=== PATIENT | female | born 1960 | race Caucasian/White ===

== ENCOUNTER 2017-03-13 21:01 | Inpatient (IN) | payer BC ==
--- NOTE | 2017-03-13 22:14 | EDM.PDOC ---
ED HPI GENERAL MEDICAL PROBLEM - General Chief Complaint: Abdominal Pain Stated Complaint: POSS GALLBLADDER ATTACK Time Seen by Provider: 03/13/17 21:09 Source of Information: Reports: Patient History Limitations: Reports: No Limitations - History of Present Illness INITIAL COMMENTS - FREE TEXT/NARRATIVE: This is a 56-year-old female. She has been having 2 month history of upper abdominal pain and discomfort feeling full hard to digest foods and having increasing diarrhea. She's had a history of diarrhea for many years but she says is just getting worse. A couple years ago she had a gallbladder ultrasound but she doesn't remember why. [place] was [place] this weekend started having right mid back area pain that seemed to move around into the epigastric area was rather severe with nausea. It has eased up considerably on her way to the ER. She says she always has a fullness in her upper abdomen. Anything that she eats seems to flare up some of the symptoms. She thinks she has a gallbladder problem but she's never talked to her doctor about her recent 2 months of symptoms. No fever no chills Right Upper Abdomen Pain Score (Numeric/FACES): 3 - Related Data Allergies Allergy/AdvReac Type Severity Reaction Status Date / Time Sulfa (Sulfonamide Allergy Rash Verified 03/13/17 21:15 Antibiotics) Home Meds: Home Meds Dextromethorphan/guaiFENesin [Mucinex DM ER 600-30 MG] 1 tab PO BID PRN [History] Estradiol [Vivelle-Dot] 1 each TD ASDIRECTED 06/03/15 [History] Estrogens, Conjugated [Premarin Vaginal Crm] 0.5 gm VAG ASDIRECTED 06/03/15 [ History] Multivitamin with Minerals [Multiple Vitamin] 1 tab PO DAILY 06/03/15 [History] Pseudoephedrine [Sudafed 12 Hour] 1 tab PO Q12HR PRN 06/03/15 [History] SUMAtriptan Succinate [Imitrex] 1 tab PO ASDIRECTED 06/03/15 [History] Ibuprofen [Motrin] 600 mg PO Q6H PRN #30 tablet 06/05/15 [Rx] Guaifenesin/Pseudoephedrne HCl [Mucinex D ER 600-60 mg Tablet] 1 tab PO Q12H [History] Past Medical History Other HEENT History: Wears glasses Genitourinary History: Reports: UTI, Recurrent Other Genitourinary History: history of uti's. none at present. cysocele/ rectocele Other OB/BYN History: D&C Musculoskeletal History: Reports: Back Pain, Chronic Other Musculoskeletal History: Sciatic Neurological History: Reports: Migraines - Past Surgical History HEENT Surgical History: Reports: Tonsillectomy GI Surgical History: Reports: Appendectomy, Colonoscopy Female Surgical History: Reports: Hysterectomy, Other (See Below) Other Female Surgeries/Procedures: Cystoceole Social & Family History - Tobacco Use Smoking Status *Q: Never Smoker Second Hand Smoke Exposure: Yes - Alcohol Use Days Per Week of Alcohol Use: 0 Number of Drinks Per Day: 0 Total Drinks Per Week: 0 - Recreational Drug Use Recreational Drug Use: No ED ROS GENERAL - Review of Systems Review Of Systems: See Below Constitutional: Denies: Fever, Chills HEENT: Reports: No Symptoms Respiratory: Reports: No Symptoms Cardiovascular: Denies: Chest Pain Endocrine: Reports: No Symptoms GI/Abdominal: Reports: Abdominal Pain, Diarrhea. Denies: Nausea, Vomiting : Reports: No Symptoms Musculoskeletal: Reports: Back Pain Skin: Reports: No Symptoms Neurological: Reports: No Symptoms Psychiatric: Reports: No Symptoms Hematologic/Lymphatic: Reports: No Symptoms ED EXAM, GI/ABD - Physical Exam Exam: See Below Exam Limited By: No Limitations General Appearance: Alert, WD/WN, No Apparent Distress Eyes: Bilateral: Normal Appearance Ears: Normal External Exam Nose: Normal Inspection Throat/Mouth: Normal Inspection, Normal Lips, Normal Voice Head: Normocephalic Neck: Supple Respiratory/Chest: No Respiratory Distress, Lungs Clear, Normal Breath Sounds Cardiovascular: Regular Rate, Rhythm, No Murmur GI/Abdominal: Soft, Other (Very tender in the epigastric and right upper quadrant with positive Reid's, the left upper quadrant and lower abdomen is nontender on palpation, bowel sounds are positive but they are decreased) Back Exam: Other (She has a nikki on her right lower thoracic area where she was having the pain initially it is not tender on palpation there is no spinal tenderness noted, no other back findings) Extremities: Normal Inspection, Normal Range of Motion Neurological: Alert, Oriented Psychiatric: Normal Affect, Normal Mood Skin Exam: Warm, Dry Course - Vital Signs Last Recorded V/S: Last Vital Signs Temp 97.2 F 03/13/17 21:15 Pulse 79 03/13/17 21:15 Resp 18 03/13/17 21:15 BP 157/87 H 03/13/17 21:15 Pulse Ox 97 03/13/17 21:15 - Orders/Labs/Meds Orders: Active Orders 24 hr Category Date Time Status Abdomen Comp [US] Stat Exams 03/13/17 21:54 Taken Labs: Laboratory Tests 03/13/17 03/13/17 03/13/17 Range/Units 22:13 22:13 23:00 WBC 11.47 H (3.98-10.04) K/mm3 RBC 5.11 (3.98-5.22) M/mm3 Hgb 14.9 (11.2-15.7) gm/L Hct 43.0 (34.1-44.9) % MCV 84.1 (79.4-94.8) fl MCH 29.2 (25.6-32.2) pg MCHC 34.7 (32.2-35.5) g/dl RDW Std Deviation 37.7 (36.4-46.3) fL Plt Count 348 (182-369) K/mm3 MPV 8.6 L (9.4-12.3) fl Neut % (Auto) 76.2 H (34.0-71.1) % Lymph % (Auto) 16.7 L (19.3-51.7) % [place] % (Auto) 5.5 (4.7-12.5) % Eos % (Auto) 1.0 (0.7-5.8) Baso % (Auto) 0.3 (0.1-1.2) % Neut # (Auto) 8.73 H (1.56-6.13) K/mm3 Lymph # (Auto) 1.92 (1.18-3.74) K/mm3 [place] # (Auto) 0.63 H (0.24-0.36) K/mm3 Eos # (Auto) 0.12 (0.04-0.36) K/mm3 Baso # (Auto) 0.04 (0.01-0.08) K/mm3 Sodium 138 (136-145) mEq/L Potassium 4.0 (3.5-5.1) mEq/L Chloride 102 (98-107) mEq/L Carbon Dioxide 25 (21-32) mEq/L Anion Gap 15.0 (5-15) BUN 12 (7-18) mg/dL Creatinine 0.9 (0.55-1.02) mg/dL Est Cr Clr Drug Dosing 57.74 mL/min Estimated GFR (MDRD) > 60 (>60) mL/min BUN/Creatinine Ratio 13.3 L (14-18) Glucose 104 (74-106) mg/dL Calcium 9.1 (8.5-10.1) mg/dL Total Bilirubin 1.5 H (0.2-1.0) mg/dL AST 405 H (15-37) U/L ALT 308 H (14-59) U/L Alkaline Phosphatase 162 H (46-116) U/L Total Protein 7.3 (6.4-8.2) g/dl Albumin 3.4 (3.4-5.0) g/dl Globulin 3.9 gm/dL Albumin/Globulin Ratio 0.9 L (1-2) Lipase 154 (73-393) U/L Urine Color Yellow (Yellow) Urine Appearance Clear (Clear) Urine pH 6.5 (5.0-8.0) Ur Specific [place] 1.015 (1.005-1.030) Urine Protein Negative (Negative) Urine Glucose (UA) Negative (Negative) Urine Ketones Negative (Negative) Urine Occult Blood Trace-lysed H (Negative) Urine Nitrite Negative (Negative) Urine Bilirubin Negative (Negative) Urine Urobilinogen 0.2 (0.2-1.0) Ur Leukocyte Esterase Negative (Negative) Urine RBC 0-5 (0-5) /hpf Urine WBC 0-5 (0-5) /hpf Ur Epithelial Cells 0-5 (0-5) /hpf Urine Bacteria Few (FEW) /hpf Urine Mucus Not seen (FEW) /hpf - Radiology Interpretation Free Text/Narrative:: Ultrasound shows cholelithiasis without signs of cholecystitis, mildly enlarged liver what might be a hemangioma in the right lobe and some mild suggestion of fatty infiltration. - Re-Assessments/Exams Free Text/Narrative Re-Assessment/Exam: 03/14/17 00:00 I spoke to the patient and her regarding the test results laboratory results and ultrasound. Departure - Departure Time of Disposition: 00:01 Disposition: Admitted As Inpatient 66 Condition: Fair Clinical Impression: Elevated liver enzymes, Abdominal pain, acute, right upper quadrant Cholelithiasis Qualifiers: Cholelithiasis location: gallbladder Cholecystitis presence: without cholecystitis Biliary obstruction: with biliary obstruction Qualified Code(s): K80.21 - Calculus of gallbladder without cholecystitis with obstruction - Discharge Information Additional Instructions: I spoke to Dr. Emerson she will admit the patient for further evaluation and treatment ED Communication - ED Communication Date/Time Date: 03/14/17 Time Called: 00:02 - Discussed Case With (1) Discussed Case With (1): Admitting Provider Person/s Notified (1): Evelyn Emerson (She will admit the patient) - My Orders Last 24 Hours: My Active Orders 03/13/17 21:54 Abdomen Comp [US] Stat - Assessment/Plan Last 24 Hours: My Active Orders 03/13/17 21:54 Abdomen Comp [US] Stat
[2017-03-14] MEDS ORDERED: Lactated Ringers 1,000 ML IV SCH (00:15)
[2017-03-14] MEDS ORDERED: Ondansetron 4 MG/2 ML SDV IVPUSH PRN (01:38)
[2017-03-14] MEDS ORDERED: Sodium Chloride 0.9% 50 ML SDV ONE (11:00)
[2017-03-14] MEDS ORDERED: Iopamidol 612 MG/ML 50 ML SDV ONE (11:00)
[2017-03-14] MEDS ORDERED: Bupivacaine 0.5%/EPINEPHrine 1:200,000 50 ML MDV ONE (11:00)
[2017-03-14] MEDS ORDERED: Lidocaine 1% with EPINEPHrine 1:100,000 20 ML MDV ONE (11:00)
[2017-03-14] MEDS ORDERED: Propofol 200 MG/20 ML SDV ONE (11:15)
[2017-03-14] MEDS ORDERED: Ondansetron 4 MG/2 ML SDV ONE (11:15)
[2017-03-14] MEDS ORDERED: Lidocaine 1% 4 ML ONE (11:16)
[2017-03-14] MEDS ORDERED: fentaNYL 250 MCG/5 ML SDV ONE (11:16)
[2017-03-14] MEDS ORDERED: Midazolam 1 MG/ML 2 ML SDV ONE (11:16)
--- NOTE | 2017-03-14 11:26 | PCM.CONS ---
H&P History of Present Illness - General Date of Service: 03/14/17 Source of Information: Patient, Old Records, Provider History Limitations: Reports: No Limitations - History of Present Illness Initial Comments - Free Text/Narative: The patient is a 56-year-old woman presented to the emergency department late yesterday evening with complaints of abdominal pain. She states that she has been feeling unwell for "months and months." She states she has felt generally unwell, achy and tired. She has had pain in her lower and upper back. She states that she has had postprandial diarrhea for many years, but this seems worse lately. She has even had episodes of fecal incontinence. About 1 week ago she had some pelvic cramping and thought she had a bladder infection. She was started on Keflex by Dr. Oh and took her last dose on . She denies a history of C. diff. She was at the [place] with her family yesterday and developed nausea and vomiting last night. She went to bed feeling unwell and woke up feeling unwell. She felt like a vice was pushing out of her abdomen. She had heartburn and took Tums and Zantac without relief. She had excessive burping but no relief in her symptoms. She had right shoulder pain. She had dry heaves and epigastric pain. She had some fevers and chills about 2 weeks ago, and some sweating last night. She states she has been previously told she had irritable bowel disease. She did have a colonoscopy in August with Dr. Meza that showed some polyps that were reportedly benign. She thinks she may have been told that her gallbladder was unremarkable on a previous ultrasound in [place]. She did have an ultrasound in the emergency department which demonstrated small gallstones, there was no pericholecystic fluid or gallbladder wall thickening or biliary ductal dilatation. She did have an elevated total bilirubin as well as elevated AST and ALT, and alkaline phosphatase. She also noted that for the last couple of months she has had intermittent black stools. She does have a family history of bleeding ulcers. She is concerned she may have an ulcer. She states that she takes "way too much " ibuprofen, 3 in the morning and 2 to 3 in the evening to help with her sciatica pain. She does not drink alcohol. She does not smoke or use tobacco. She does drink some coffee and caffeinated beverages. She has had intermittent episodes of feeling lightheaded and dizzy. She denies any chest pain or shortness of breath with exertion. She did have a history of a stress test in [place] about a year and a half ago which was reportedly unremarkable. She has been NPO overnight and states she feels a little better this AM. Right Upper Abdomen Pain Score (Numeric/FACES): 2 - Related Data Allergies/Adverse Reactions: Allergies Allergy/AdvReac Type Severity Reaction Status Date / Time Sulfa (Sulfonamide Allergy Rash Verified 03/13/17 21:15 Antibiotics) Home Medications: Home Meds Estradiol [Vivelle-Dot] 1 each TD ASDIRECTED 06/03/15 [History] Multivitamin with Minerals [Multiple Vitamin] 1 tab PO DAILY 06/03/15 [History] SUMAtriptan Succinate [Imitrex] 1 tab PO ASDIRECTED 06/03/15 [History] Ibuprofen [Motrin] 600 mg PO Q6H PRN #30 tablet 06/05/15 [Rx] Past Medical History Other HEENT History: Wears glasses Other Cardiovascular History: Abnormality noted on EKG - ? old inferior infarct , reports normal stress test in [place] 1.5 years ago Gastrointestinal History: Reports: Cholelithiasis, Chronic Diarrhea, Colon Polyp , Fecal Incontinence, Irritable Bowel Syndrome Genitourinary History: Reports: UTI, Recurrent Other Genitourinary History: history of uti's. none at present. cystocele/ rectocele repair w/ Dr. Oh Other OB/BYN History: D&C Musculoskeletal History: Reports: Back Pain, Chronic Other Musculoskeletal History: Sciatica Neurological History: Reports: Migraines Endocrine/Metabolic History: Reports: Obesity/BMI 30+ - Infectious Disease History Infectious Disease History: Denies: C-Difficile - Past Surgical History HEENT Surgical History: Reports: Tonsillectomy, Other (See Below) ([place] teeth extraction) GI Surgical History: Reports: Appendectomy (open), Colonoscopy Female Surgical History: Reports: Hysterectomy (vaginal), Other (See Below) Other Female Surgeries/Procedures: Cystocele/ Rectocele repair Social & Family History - Family History Family Medical History: Noncontributory Other Family History: [place] - pneumonia, thyroid issues (not cancer) FA - bladder cancer 5 siblings, 1 BRO due to MVC, 1 BRO due to MA at 62 with no risk factors - Tobacco Use Smoking Status *Q: Never Smoker Second Hand Smoke Exposure: No - Caffeine Use Caffeine Use: Reports: Coffee, Soda Other Caffeine Use: 1 caffinated drink a day - Alcohol Use Alcohol Use History: No Days Per Week of Alcohol Use: 0 Number of Drinks Per Day: 0 Total Drinks Per Week: 0 - Recreational Drug Use Recreational Drug Use: No - Living Situation & Occupation Living situation: Reports: Occupation: Employed 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 H&P Review of Systems - Review of Systems: Review Of Systems: See Below General: Reports: Fever, Chills, Malaise, Fatigue, Other (general feeling of unwell for months ) HEENT: Reports: Glasses, Headaches Pulmonary: Reports: No Symptoms Cardiovascular: Reports: Lightheadedness Gastrointestinal: Reports: Abdominal Pain, Black Stool, Diarrhea, Nausea, Vomiting Genitourinary: Reports: Pain (Intermittent pelvic pain), Other (Frequent UTI ) Musculoskeletal: Reports: Shoulder Pain (Right ) Skin: Reports: No Symptoms Psychiatric: Reports: No Symptoms Neurological: Reports: Dizziness Hematologic/Lymphatic: Reports: No Symptoms Immunologic: Reports: No Symptoms Exam - Exam Exam: See Below - Vital Signs Vital Signs: Last Vital Signs Temp 97.9 F 03/14/17 08:46 Pulse 68 03/14/17 08:46 Resp 16 03/14/17 08:46 BP 118/65 03/14/17 08:46 Pulse Ox 92 L 03/14/17 08:46 Weight: 200 lb - Exam Quality Assessment: No: Supplemental Oxygen General: Alert, Oriented, Cooperative HEENT: Conjunctiva Clear, Glasses. No: Scleral Icterus Neck: Supple, Trachea Midline Lungs: Clear to Auscultation, Normal Respiratory Effort Cardiovascular: Regular Rate, Regular Rhythm Abdomen: Soft, Guarding (voluntary pelvis and upper abdomen ), Tenderness ( pelvis and epigastrium/ RUQ ). No: Distention, Rigidity, Rebound, Mass, Aortic Pulsation Rectal (Female) Exam: Deferred Extremities: No: Clubbing, Cyanosis, Edema Skin: Warm, Dry, Intact Neurological: Cranial Nerves Intact, Normal Speech. No: Focal Deficit Neuro Extensive - Mental Status: Alert, Oriented x3, Normal Mood/Affect, Normal Cognition, Memory Intact Psychiatric: Alert, Normal Affect, Normal Mood - Patient Data Lab Results Last 24 hrs: Laboratory Results - last 24 hr 03/14/17 03/14/17 Range/Units 10:15 10:15 WBC 8.59 (3.98-10.04) K/mm3 RBC 4.84 (3.98-5.22) M/mm3 Hgb 14.2 (11.2-15.7) gm/L Hct 41.1 (34.1-44.9) % MCV 84.9 (79.4-94.8) fl MCH 29.3 (25.6-32.2) pg MCHC 34.5 (32.2-35.5) g/dl RDW Std Deviation 38.3 (36.4-46.3) fL Plt Count 334 (182-369) K/mm3 MPV 8.8 L (9.4-12.3) fl Sodium 138 (136-145) mEq/L Potassium 3.8 (3.5-5.1) mEq/L Chloride 103 (98-107) mEq/L Carbon Dioxide 26 (21-32) mEq/L Anion Gap 12.8 (5-15) BUN 10 (7-18) mg/dL Creatinine 0.8 (0.55-1.02) mg/dL Est Cr Clr Drug Dosing 64.95 mL/min Estimated GFR (MDRD) > 60 (>60) mL/min BUN/Creatinine Ratio 12.5 L (14-18) Glucose 98 (74-106) mg/dL Calcium 8.6 (8.5-10.1) mg/dL Total Bilirubin 1.2 H (0.2-1.0) mg/dL Direct Bilirubin 0.20 (0.0-0.2) mg/dl Indirect Bilirubin 1.00 AST 171 H (15-37) U/L ALT 256 H (14-59) U/L Alkaline Phosphatase 153 H (46-116) U/L Total Protein 6.7 (6.4-8.2) g/dl Albumin 3.2 L (3.4-5.0) g/dl Globulin 3.5 gm/dL Albumin/Globulin Ratio 0.9 L (1-2) Result Diagrams: 03/14/17 10:15 03/14/17 10:15 Imaging Impressions Last 24 hrs: I personally reviewed her Abdominal US - gallstones present, no significant intra or extrahepatic ductal dilation, no pericholecystic fluid, no gallbladder wall thickening. Consult PN Assessment/Plan Procedures: Procedures COLONOSCOPY AND BIOPSY (09/04/16) COMP SCREEN MAMMOGRAM ADD-ON (08/19/16) COMPLETE CBC W/AUTO DIFF WBC (06/04/15) COMPREHEN METABOLIC PANEL (06/04/15) ELECTROCARDIOGRAM TRACING (06/04/15) REPAIR BLADDER DEFECT (06/04/15) REPAIR OF PERINEUM (06/04/15) REPAIR OF VAGINA (06/04/15) ROUTINE VENIPUNCTURE (06/04/15) TISSUE EXAM BY PATHOLOGIST (09/04/16) TRANSVAGINAL US NON-OB (12/12/15) URINALYSIS AUTO W/SCOPE (09/10/16) (1) Cholelithiasis SNOMED Code(s): 476059997 Code(s): K80.20 - CALCULUS OF GALLBLADDER W/O CHOLECYSTITIS W/O OBSTRUCTION Current Visit: Yes Qualifiers: Cholelithiasis location: gallbladder Cholecystitis presence: without cholecystitis Biliary obstruction: with biliary obstruction Qualified Code(s ): K80.21 - Calculus of gallbladder without cholecystitis with obstruction (2) Abdominal pain, acute, right upper quadrant SNOMED Code(s): 431279579 Code(s): R10.11 - RIGHT UPPER QUADRANT PAIN Current Visit: Yes (3) History of melena SNOMED Code(s): 449708294 Code(s): Z87.19 - PERSONAL HISTORY OF OTHER DISEASES OF THE DIGESTIVE SYSTEM Current Visit: Yes (4) NSAID long-term use SNOMED Code(s): 508730994, 542639561 Code(s): Z79.1 - NONPROFIT MANAGER (CURRENT) USE OF NON-STEROIDAL NON-INFLAM (NSAID) Current Visit: Yes (5) Dizziness SNOMED Code(s): 087006776, 967571422 Code(s): R42 - DIZZINESS AND GIDDINESS Current Visit: Yes (6) Elevated liver enzymes SNOMED Code(s): 348743715, 159575074 Code(s): R74.8 - ABNORMAL LEVELS OF OTHER SERUM ENZYMES Current Visit: Yes Problem List Initiated/Reviewed/Updated: Yes My Orders last 24 hours: My Active Orders 03/14/17 00:15 Lactated Ringers [Ringers, Lactated] 1,000 ml IV ASDIRECTED 03/14/17 01:38 Ondansetron [Zofran] 4 mg IVPUSH Q6H PRN 03/14/17 01:40 HYDROmorphone [Dilaudid] 0.5 mg IVPUSH Q4H PRN 03/14/17 01:41 Activity as Tolerated [RC] .Routine Code Status [Resuscitation Status] Routine 03/14/17 11:04 Cholangiogram In OR [CR] Routine 03/14/17 Breakfast NPO Now [Nothing per Oral Now Diet] [DIET] Plan: 56 yo woman with cholelithiases and elevated total bilirubin and transaminases, ? acute cholecystitis as also mild leukocytosis, abdominal pain, nausea and vomiting, melena and diarrhea with chronic NSAID use We discussed laparoscopic cholecystectomy with intraoperative cholangiogram and diagnostic EGD for treatment of above symptoms and associated symptoms. We discussed risks of the procedure including pain, bleeding, need for additional procedures, damage to surrounding structures including the biliary system and common bile duct, liver, small bowel, stomach and colon. We discussed the risk of postoperative change in bowel habits which can be permanent. We reviewed the post-operative lifting restrictions of no more than 20 lbs for 4 weeks. The patient's questions were answered. Preoperative EKG was ordered.
--- NOTE | 2017-03-14 11:26 | PCM.PREANE ---
Preanesthetic Assessment - Anesthesia/Transfusion/Family Hx Anesthesia History: Prior Anesthesia Without Reaction Family History of Anesthesia Reaction: No Transfusion History: No Prior Transfusion(s) - Review of Systems General: Fatigue Pulmonary: No Symptoms Cardiovascular: Dyspnea on Exertion Gastrointestinal: No symptoms Neurological: No Symptoms Other: Reports: None - Physical Assessment NPO Status Date: 03/13/17 NPO Status Time: 00:00 Pulse: 68 O2 Sat by Pulse Oximetry: 92 Respiratory Rate: 16 Blood Pressure: 118/65 Temperature: 36.6 C Vital Signs: Last Vital Signs Temp 36.6 C 03/14/17 08:46 Pulse 68 03/14/17 08:46 Resp 16 03/14/17 08:46 BP 118/65 03/14/17 08:46 Pulse Ox 92 L 03/14/17 08:46 Height: 1.6 m Weight: 90.718 kg ASA Class: 2E Mental Status: Alert & Oriented x3 Airway Class: Mallampati = 1 Dentition: Reports: Normal Dentition Thyro-Mental Finger Breadths: 3 Mouth Opening Finger Breadths: 3 ROM/Head Extension: Full Lungs: Clear to auscultation, Normal respiratory effort Cardiovascular: Regular Rate, Regular Rhythm, No Murmurs - Lab Values: Laboratory Last Values WBC 8.59 K/mm3 (3.98-10.04) 03/14/17 10:15 RBC 4.84 M/mm3 (3.98-5.22) 03/14/17 10:15 Hgb 14.2 gm/L (11.2-15.7) 03/14/17 10:15 Hct 41.1 % (34.1-44.9) 03/14/17 10:15 MCV 84.9 fl (79.4-94.8) 03/14/17 10:15 MCH 29.3 pg (25.6-32.2) 03/14/17 10:15 MCHC 34.5 g/dl (32.2-35.5) 03/14/17 10:15 RDW Std Deviation 38.3 fL (36.4-46.3) 03/14/17 10:15 Plt Count 334 K/mm3 (182-369) 03/14/17 10:15 MPV 8.8 fl (9.4-12.3) L 03/14/17 10:15 Neut % (Auto) 76.2 % (34.0-71.1) H 03/13/17 22:13 Lymph % (Auto) 16.7 % (19.3-51.7) L 03/13/17 22:13 [place] % (Auto) 5.5 % (4.7-12.5) 03/13/17 22:13 Eos % (Auto) 1.0 (0.7-5.8) 03/13/17 22:13 Baso % (Auto) 0.3 % (0.1-1.2) 03/13/17 22:13 Neut # (Auto) 8.73 K/mm3 (1.56-6.13) H 03/13/17 22:13 Lymph # (Auto) 1.92 K/mm3 (1.18-3.74) 03/13/17 22:13 [place] # (Auto) 0.63 K/mm3 (0.24-0.36) H 03/13/17 22:13 Eos # (Auto) 0.12 K/mm3 (0.04-0.36) 03/13/17 22:13 Baso # (Auto) 0.04 K/mm3 (0.01-0.08) 03/13/17 22:13 Sodium 138 mEq/L (136-145) 03/14/17 10:15 Potassium 3.8 mEq/L (3.5-5.1) 03/14/17 10:15 Chloride 103 mEq/L (98-107) 03/14/17 10:15 Carbon Dioxide 26 mEq/L (21-32) 03/14/17 10:15 Anion Gap 12.8 (5-15) 03/14/17 10:15 BUN 10 mg/dL (7-18) 03/14/17 10:15 Creatinine 0.8 mg/dL (0.55-1.02) 03/14/17 10:15 Est Cr Clr Drug Dosing 64.95 mL/min 03/14/17 10:15 Estimated GFR (MDRD) > 60 mL/min (>60) 03/14/17 10:15 BUN/Creatinine Ratio 12.5 (14-18) L 03/14/17 10:15 Glucose 98 mg/dL (74-106) 03/14/17 10:15 Calcium 8.6 mg/dL (8.5-10.1) 03/14/17 10:15 Total Bilirubin 1.2 mg/dL (0.2-1.0) H 03/14/17 10:15 Direct Bilirubin 0.20 mg/dl (0.0-0.2) 03/14/17 10:15 Indirect Bilirubin 1.00 03/14/17 10:15 AST 171 U/L (15-37) H 03/14/17 10:15 ALT 256 U/L (14-59) H 03/14/17 10:15 Alkaline Phosphatase 153 U/L (46-116) H 03/14/17 10:15 Total Protein 6.7 g/dl (6.4-8.2) 03/14/17 10:15 Albumin 3.2 g/dl (3.4-5.0) L 03/14/17 10:15 Globulin 3.5 gm/dL 03/14/17 10:15 Albumin/Globulin Ratio 0.9 (1-2) L 03/14/17 10:15 Lipase 154 U/L (73-393) 03/13/17 22:13 Urine Color Yellow (Yellow) 03/13/17 23:00 Urine Appearance Clear (Clear) 03/13/17 23:00 Urine pH 6.5 (5.0-8.0) 03/13/17 23:00 Ur Specific [place] 1.015 (1.005-1.030) 03/13/17 23:00 Urine Protein Negative (Negative) 03/13/17 23:00 Urine Glucose (UA) Negative (Negative) 03/13/17 23:00 Urine Ketones Negative (Negative) 03/13/17 23:00 Urine Occult Blood Trace-lysed (Negative) H 03/13/17 23:00 Urine Nitrite Negative (Negative) 03/13/17 23:00 Urine Bilirubin Negative (Negative) 03/13/17 23:00 Urine Urobilinogen 0.2 (0.2-1.0) 03/13/17 23:00 Ur Leukocyte Esterase Negative (Negative) 03/13/17 23:00 Urine RBC 0-5 /hpf (0-5) 03/13/17 23:00 Urine WBC 0-5 /hpf (0-5) 03/13/17 23:00 Ur Epithelial Cells 0-5 /hpf (0-5) 03/13/17 23:00 Urine Bacteria Few /hpf (FEW) 03/13/17 23:00 Urine Mucus Not seen /hpf (FEW) 03/13/17 23:00 - Imaging/EKG Impressions: SR on chart - Allergies Allergies/Adverse Reactions: Allergies Allergy/AdvReac Type Severity Reaction Status Date / Time Sulfa (Sulfonamide Allergy Rash Verified 03/13/17 21:15 Antibiotics) - Acknowledgements Anesthesia Type Planned: General Anesthesia Pt an Appropriate Candidate for the Planned Anesthesia: Yes Alternatives and Risks of Anesthesia Discussed w Pt/Guardian: Yes Pt/Guardian Understands and Agrees with Anesthesia Plan: Yes PreAnesthesia Questionnaire Other HEENT History: Wears glasses Gastrointestinal History: Reports: GERD Genitourinary History: Reports: UTI, Recurrent Other Genitourinary History: history of uti's. none at present. cysocele/ rectocele Other OB/BYN History: D&C Musculoskeletal History: Reports: Back Pain, Chronic Other Musculoskeletal History: Sciatic Neurological History: Reports: Migraines - Past Surgical History HEENT Surgical History: Reports: Tonsillectomy GI Surgical History: Reports: Appendectomy, Colonoscopy Female Surgical History: Reports: Hysterectomy, Other (See Below) Other Female Surgeries/Procedures: Cystoceole - SUBSTANCE USE Smoking Status *Q: Never Smoker Tobacco Use Within Last Twelve Months: No Second Hand Smoke Exposure: Yes Days Per Week of Alcohol Use: 0 Number of Drinks Per Day: 0 Total Drinks Per Week: 0 Recreational Drug Use History: No - HOME MEDS Home Medications: Home Meds Estradiol [Vivelle-Dot] 1 each TD ASDIRECTED 06/03/15 [History] Multivitamin with Minerals [Multiple Vitamin] 1 tab PO DAILY 06/03/15 [History] SUMAtriptan Succinate [Imitrex] 1 tab PO ASDIRECTED 06/03/15 [History] Ibuprofen [Motrin] 600 mg PO Q6H PRN #30 tablet 06/05/15 [Rx] - CURRENT (IN HOUSE) MEDS Current Meds: Current Medications Hydromorphone HCl (Dilaudid) 0.5 mg IVPUSH Q4H PRN PRN Reason: Pain Lactated Ringer's (Ringers, Lactated) 1,000 mls @ 125 mls/hr IV ASDIRECTED [facility] Ondansetron HCl (Zofran) 4 mg IVPUSH Q6H PRN PRN Reason: Nausea Discontinued Medications Bupivacaine HCl/Epinephrine Bitart (Marcaine 0.5%/Epinephrine 1:200,000) Confirm Administered Dose 50 ml .ROUTE .STK-MED ONE Stop: 03/14/17 11:01 Fentanyl (Sublimaze) Confirm Administered Dose 250 mcg .ROUTE .STK-MED ONE Stop: 03/14/17 11:17 Lidocaine HCl (Xylocaine-Mpf 1%) Confirm Administered Dose 4 mls @ as directed .ROUTE .STK-MED ONE Stop: 03/14/17 11:17 Iopamidol (Isovue-300 (61%)) Confirm Administered Dose 50 ml .ROUTE .STK-MED ONE Stop: 03/14/17 11:01 Lidocaine/Epinephrine (Xylocaine 1% With Epinephrine 1:100,000) Confirm Administered Dose 20 ml .ROUTE .STK-MED ONE Stop: 03/14/17 11:01 Midazolam HCl (Versed 1 Mg/Ml) Confirm Administered Dose 2 mg .ROUTE .STK-MED ONE Stop: 03/14/17 11:17 Ondansetron HCl (Zofran) Confirm Administered Dose 4 mg .ROUTE .STK-MED ONE Stop: 03/14/17 11:16 Propofol (Diprivan 20 Ml) Confirm Administered Dose 200 mg .ROUTE .STK-MED ONE Stop: 03/14/17 11:16 Sodium Chloride (Normal Saline) Confirm Administered Dose 100 ml .ROUTE .STK- MED ONE Stop: 03/14/17 11:01 Vecuronium Donaldson (Vecuronium) Confirm Administered Dose 10 mg .ROUTE .STK-MED ONE Stop: 03/14/17 11:17
[2017-03-14] MEDS ORDERED: ceFAZolin 1 GM Vial ONE (12:17)
[2017-03-14] MEDS ORDERED: Dexamethasone 4 MG/ML 5 ML MDV ONE (12:26)
[2017-03-14] MEDS ORDERED: diphenhydrAMINE 50 MG/ML SDV ONE (12:26)
[2017-03-14] MEDS ORDERED: HYDROmorphone 1 MG/ML Syringe ONE (12:35)
[2017-03-14] MEDS ORDERED: Lactated Ringers 1,000 ML ONE (12:40)
[2017-03-14] MEDS ORDERED: Neostigmine Methylsulfate 1 MG/ML 5 ML Syringe ONE (13:09)
--- NOTE | 2017-03-14 13:28 | PCM.OPNOTE ---
- General Post-Op/Procedure Note Date of Surgery/Procedure: 03/14/17 Operative Procedure(s): 1. Laparoscopic cholecystectomy with intraoperative cholangiogram. 2. Fluoroscopic guidance and interpretation. 3. Diagnostic EGD with cold forceps biopsy Pre Op Diagnosis: Cholelithases, suspected cholecystitis, transaminitis, elevated total bilirubin, reported melena, diarrhea, abdominal pain, nausea and vomiting Post-Op Diagnosis: 1. Acute on chronic cholecystitis. 2. Cholelithiasis. 3. Gastritis. 4. Small hiatal hernia Anesthesia Technique: General ET tube, Local (40 mL) Primary Surgeon: Evelyn Emerson Anesthesia Provider: Noe Ma Pathology: 1. Gallbladder 2. Small bowel biopsy 3. Antral biopsy 4. Distal esophageal biopsy Fluid Replacement, Intraop: 1,500 (mL crystalloid) EBL in mLs: 10 Complications: None Condition: Good Free Text/Narrative:: INDICATION FOR PROCEDURE: The patient is a 56-year-old woman who had been referred to me by Dr. Oliveira in the Emergency Department for evaluation for symptomatic cholelithiasis. She also disclosed that she has been having melena and takes a large amount of ibuprofen every day (6), and had been for some time. She also has chronic post- prandial diarrhea. I discussed with the patient performing a laparoscopic cholecystectomy with interoperative cholangiogram due to elevated transaminases and total bilirubin, as well as diagnostic EGD, and associated risks of the procedures. The patient found these risks acceptable and agreed to proceed. DESCRIPTION OF PROCEDURE: The patient was taken to the operating room and placed in the supine position. Sequential compressive devices were placed on the bilateral lower extremities. After induction of general endotracheal anesthesia, the abdomen was prepped and draped in the usual sterile fashion. Preoperative antibiotics had been administered as per protocol. A supraumbilical curvilinear incision was made using a scalpel. This was deepened down through the subcutaneous tissues to the anterior abdominal wall fascia which was elevated and incised. The abdomen was bluntly entered using a hemostat. An 0 Vicryl stay suture was placed. A Mobley cannula was introduced into the abdomen and the abdomen was insufflated to 15 mm of mercury. The abdomen was then surveyed. There was no evidence of inguinal hernia. The visualized portion of the large and small intestine were unremarkable. The liver appeared unremarkable. The stomach was slightly distended with air but was otherwise unremarkable. Attention was turned then to the patient's gallbladder which had omental and duodenal adhesions. Two additional 5 mm trocars were then placed under direct visualization after first injecting local anesthetic, one in the epigastrium and one in the right subcostal margin. Adhesions to the gallbladder were taken down using blunt dissection and electrocautery. The gallbladder fundus was elevated, and the triangle of Calot was dissected. A retraction suture was placed through the gallbladder fundus to aid in visualization. The Wray cholangiocatheter clamp was placed and the catheter advanced into the infundibulum under direct visualization. A cholangiogram was performed. There was free flow contrast into the duodenum. There was a smooth and tapered common bile duct with no evidence of stricture or obstruction/filling defects. Retrograde flow was seen into the common hepatic duct and hepatic radicals without abnormality. The cholangiocatheter was removed. The cystic duct was then triply clipped and fully transected. The cystic artery was then triply clipped and transected using Endo Reed. The gallbladder was then taken off the liver bed using hook electrocautery. The gallbladder was placed into an EndoCatch bag. The abdomen was irrigated and suctioned until the effluent was clear. The liver bed was reinspected for hemostasis. The 5 mm trocars were removed with no evidence of bleeding. The Mobley cannula and gallbladder within the EndoCatch bag were then removed. The patient's fascial incision was closed using an 0 Vicryl [id number] suture. Additional local anesthetic was injected mello-incisionally. The incisions were then closed using subcuticular 4-0 Monocryl suture. Dermabond was placed over the patient's skin incisions. Attention was then turned to the diagnostic EGD. A bite block was placed. A standard Olympus gastroscope was inserted into the oropharynx and guided down the esophagus without difficulty. The gastroesophageal junction was appreciated at 39 cm from the teeth. There was no evidence of stricture or esophageal ulcerations. The scope was advanced into the stomach, and there was mild patchy gastritis, worst around the antrum. The scope was passed into the proximal jejunum and the duodenum which were unremarkable. There were no petechiae or ulcerations. The proximal jejunum was grossly normal in appearance. Multiple cold forceps biopsies were obtained of the proximal jejunum and duodenum. The scope was withdrawn into the antrum, and additional cold forceps biopsies were obtained. The remainder of the gastric body was examined, and there were no additional abnormalities. The scope was retroflexed , and there was a diminutive sliding hiatal hernia. The scope was straightened and withdrawn to the GE junction. Additional cold forceps biopsies were obtained of the distal esophagus. The scope was withdrawn through the remainder of the esophagus and no further abnormalities were noted. The posterior oropharynx was grossly normal in appearance. The scope was then fully withdrawn. The patient was awakened from sedation and transferred to the recovery room in stable condition having tolerated the procedure well. The patient was then awakened from anesthesia, extubated, and transferred to the recovery room in stable condition having tolerated the procedure well. Sponge and instrument counts were reported as correct at the end of the case. POSTOPERATIVE PLAN: The patient will be allowed to advance her diet as tolerated today. We will start her on oral pain medications as her diet is advanced. I discussed my intraoperative findings with the patient's via telephone. She is not to lift over 20 pounds for the next 4 weeks. She may shower tomorrow. We will evaluate her tomorrow morning to see if she is stable for discharge home.
[2017-03-14] MEDS ORDERED: fentaNYL 250 MCG/5 ML SDV IVPUSH PRN (13:39)
--- NOTE | 2017-03-14 13:41 | PCM.POSTAN ---
POST ANESTHESIA ASSESSMENT - MENTAL STATUS Mental Status: somnolent - VITAL SIGNS Pulse Rate: 57 SaO2: 96 Resp Rate: 12 Blood Pressure: 86/57 Temperature: 36.4 C - RESPIRATORY Respiratory Status: respiratory rate WNL, airway patent, O2 saturation stable, supplemental oxygen - CARDIOVASCULAR CV Status: pulse rate WNL, blood pressure stable - GASTROINTESTINAL GI Status: no symptoms - PAIN Pain Score: 0 - POST OP HYDRATION Hydration Status: adequate & stable - OBSERVATIONS Free Text/Narrative:: no anesthesia complications noted
[2017-03-14] MEDS ORDERED: Benzocaine/Cetylpyridinium/Menthol Lozenge MUCMEM PRN (13:44)
[2017-03-14] MEDS ORDERED: Acetaminophen/oxyCODONE 325-5 MG Tab PO PRN (13:44)
[2017-03-14] MEDS ORDERED: Sodium Chloride 0.9% 10 ML Syringe FLUSH PRN (13:44)
[2017-03-14] MEDS: HYDROmorphone 0.5 MG/0.5 ML Syringe IVPUSH PRN ×2 (14:25→20:00)
[2017-03-14] MEDS ORDERED: Magnesium Hydroxide 400 MG/5 ML Susp 30 ML Cup PO PRN (19:49)
[2017-03-15] MEDS ORDERED: Pantoprazole 40 MG Tab.CR PO SCH (06:00)
--- NOTE | 2017-03-15 08:10 | US ---
Abdominal ultrasound: Multiple real-time images were obtained of the abdomen. Comparison: Previous CT abdomen and pelvis exam of 11/10/13 is available. Findings: Liver shows a small hyperechoic area within the right lobe of the liver measuring approximately 1.0 cm. This is most likely due to to a small hemangioma. This finding is not definitely identified on prior CT study but could easily be missed due to its small size. Liver may be slightly echogenic. Small gallstone appears to be present within the gallbladder. No gallbladder wall thickening is seen. Common bile duct measures 6.8 mm which is at the upper limits of normal. Kidneys show no hydronephrosis. Small hyperechoic area either due to cortical calcification or nonobstructing stone noted within the upper right kidney measuring approximately 1 cm. Right kidney measures 11.0 cm in length. Left kidney measures 10.5 cm in length. Aorta shows no aneurysmal dilatation. No retroperitoneal adenopathy is seen. No mesenteric abnormalities are seen. Spleen size is normal. Inferior vena cava is patent. Pancreas shows no discrete abnormality. Impression: 1. Single small gallstone. No gallbladder wall thickening is seen. Common bile duct at the upper limits of normal measuring 6.8 mm. 2. Small hyperechoic abnormality within the right lobe of the liver most likely representing minimal hemangioma. Mild fatty infiltration also seen within the liver. 3. Small cortical calcification or nonobstructing stone is incidentally noted within the upper right kidney. Diagnostic code #3 Agree with preliminary report issued by [facility] ([facility] report dictated on 03/14/17, 12:29 AM Central Time)
--- NOTE | 2017-03-15 10:11 | CR ---
Operative cholangiogram Single fluoroscopic spot view was obtained utilizing C-arm device during operative cholangiogram exam. There is opacification at the CHD and CBD as well as small portion of the intrahepatic ducts. No filling defects seen on this one view to indicate retained stone. Contrast is noted within the duodenum. Impression: 1. Unremarkable one-view operative cholangiogram exam. Diagnostic code #1
[2017-03-15 16:17] VITALS: BP 135/64
[2017-03-15] MEDS: HYDROmorphone 0.5 MG/0.5 ML Syringe IVPUSH PRN (16:44)
--- NOTE | 2017-03-17 14:30 | PCM.DCSUM1 ---
Discharge Summary - Hospital Course Free Text/Narrative:: The patient is a 56 yo woman admitted for acute cholecysitis with cholelithiasis. She also had elevated liver function tests. She had additionally reported melena and a general feeling of being unwell lately. She rarely seeks medical care and does not have a primary care provider. She did undergo laparoscopic cholecystectomy with intraoperative cholangiogram and diagnostic EGD. She did have gastritis and findings of inflammatory change on EGD. She was started on a PPI to be continued at discharge. I had an extensive discussion with her and her at the time of discharge. 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 With her family hx of cardiac issues I would like her to establish care with a PCP and to have a CT heart score. She also needs a colonoscopy as she is 6 years overdue. She is up to date with her mammography per her report. After her cholecystectomy she is doing well, her incisions are clean, dry, and intact, and she is tolerating a regular diet and her liver enzymes are trending down. Her liver enzymes will need to be rechecked at her follow up in about 2 weeks. - Discharge Data Discharge Date: 03/15/17 Discharge Disposition: Home, Self-Care 01 Condition: Good - Discharge Diagnosis/Problem(s) (1) Cholelithiasis SNOMED Code(s): 164568436 ICD Code: K80.20 - CALCULUS OF GALLBLADDER W/O CHOLECYSTITIS W/O OBSTRUCTION Status: Resolved Qualifiers: Qualified Code(s): K80.21 - Calculus of gallbladder without cholecystitis with obstruction (2) Abdominal pain, acute, right upper quadrant SNOMED Code(s): 681454514 ICD Code: R10.11 - RIGHT UPPER QUADRANT PAIN Status: Resolved (3) History of melena SNOMED Code(s): 781158349 ICD Code: Z87.19 - PERSONAL HISTORY OF OTHER DISEASES OF THE DIGESTIVE SYSTEM Status: Resolved (4) NSAID long-term use SNOMED Code(s): 460644591, 865995343 ICD Code: Z79.1 - ALF (CURRENT) USE OF NON-STEROIDAL NON-INFLAM (NSAID ) Status: Acute (5) Dizziness SNOMED Code(s): 910768770, 726600285 ICD Code: R42 - DIZZINESS AND GIDDINESS Status: Acute (6) Elevated liver enzymes SNOMED Code(s): 824765449, 624707807 ICD Code: R74.8 - ABNORMAL LEVELS OF OTHER SERUM ENZYMES Status: Acute (7) Gastritis and gastroduodenitis with hemorrhage SNOMED Code(s): 8236102, 523424926, 021557526 ICD Code: K29.71 - GASTRITIS, UNSPECIFIED, WITH BLEEDING; K29.91 - GASTRODUODENITIS, UNSPECIFIED, WITH BLEEDING Status: Acute - Patient Summary/Data Operative Procedure(s) Performed: 1. Laparoscopic cholecystectomy with intraoperative cholangiogram. 2. Fluoroscopic guidance and interpretation. 3. Diagnostic EGD with cold forceps biopsy Consults: Consultations 03/14/17 13:44 Respiratory Care Assess and Treatment [CONS] Routine - Patient Instructions Diet, Other: GERD diet. Activity: No Lifting Over 20 Pounds (for 4 weeks ) Driving: Do Not Drive (while on narcotics ) Showering/Bathing: May Shower, No Tub Bathing/Swimming Wound/Incision Care: Keep Operative Site/Wound Site Clean and Dry Notify Provider of: Fever, Increased Pain, Swelling and Redness, Drainage, Nausea and/or Vomiting - Discharge Plan Prescriptions/Med Rec: Acetaminophen/oxyCODONE [Percocet 325-5 MG] 1 - 2 tab PO Q4H PRN #30 tablet PRN Reason: Pain Meloxicam 7.5 mg PO QAM PRN #30 tablet PRN Reason: Sciatica pain Pantoprazole [ProTONIX] 40 mg PO DAILY #90 tab.cr Home Medications: Home Meds Estradiol [Vivelle-Dot] 1 each TD ASDIRECTED 06/03/15 [History] Multivitamin with Minerals [Multiple Vitamin] 1 tab PO DAILY 06/03/15 [History] SUMAtriptan Succinate [Imitrex] 1 tab PO ASDIRECTED 06/03/15 [History] Acetaminophen/oxyCODONE [Percocet 325-5 MG] 1 - 2 tab PO Q4H PRN #30 tablet [Rx] Meloxicam 7.5 mg PO QAM PRN #30 tablet 03/15/17 [Rx] Pantoprazole [ProTONIX] 40 mg PO DAILY #90 tab.cr 03/15/17 [Rx] Patient Handouts: Cholelithiasis, [id number] Referrals: Jet Oh MD [Primary Care Provider] - Brittanie Ojeda NP [Nurse Practitioner] - 04/05/17 2:00 pm (2 weeks ) - Discharge Summary/Plan Comment DC Time >30 min.: Yes (Counseling with patient and her . ) - General Info Date of Service: 03/15/17 Functional Status: Reports: pain controlled, tolerating diet, ambulating. Denies: new symptoms - Patient Data Vitals - Most Recent: Last Vital Signs Temp 98.6 F 03/15/17 15:34 Pulse 73 03/15/17 15:34 Resp 14 03/15/17 15:34 BP 135/64 03/15/17 15:34 Pulse Ox 94 L 03/15/17 15:34 Weight - Most Recent: 201 lb Med Orders - Current: Current Medications Discontinued Medications Benzocaine/Menthol (Cepacol Sore Throat) 1 lozenge MUCMEM Q1H PRN PRN Reason: Sore Throat Bupivacaine HCl/Epinephrine Bitart (Marcaine 0.5%/Epinephrine 1:200,000) Confirm Administered Dose 50 ml .ROUTE .STK-MED ONE Stop: 03/14/17 11:01 Last Admin: 03/14/17 12:34 Dose: 20 ml Cefazolin Sodium (Ancef) Confirm Administered Dose 2 gm .ROUTE .STK-MED ONE Stop: 03/14/17 12:18 Dexamethasone (Dexamethasone) Confirm Administered Dose 20 mg .ROUTE .STK-MED ONE Stop: 03/14/17 12:27 Diphenhydramine HCl (Benadryl) Confirm Administered Dose 50 mg .ROUTE .STK-MED ONE Stop: 03/14/17 12:27 Fentanyl (Sublimaze) Confirm Administered Dose 250 mcg .ROUTE .STK-MED ONE Stop: 03/14/17 11:17 Fentanyl (Sublimaze) 50 mcg IVPUSH Q5M PRN PRN Reason: PAIN Glycopyrrolate () Confirm Administered Dose 1 mg .ROUTE .STK-MED ONE Stop: 03/14/17 13:10 Hydromorphone HCl (Dilaudid) 0.5 mg IVPUSH Q4H PRN PRN Reason: Pain Last Admin: 03/15/17 16:44 Dose: 0.5 mg Hydromorphone HCl (Dilaudid) Confirm Administered Dose 1 mg .ROUTE .STK-MED ONE Stop: 03/14/17 12:36 Lactated Ringer's (Ringers, Lactated) 1,000 mls @ 125 mls/hr IV ASDIRECTED [facility] Lidocaine HCl (Xylocaine-Mpf 1%) Confirm Administered Dose 4 mls @ as directed .ROUTE .STK-MED ONE Stop: 03/14/17 11:17 Lactated Ringer's (Ringers, Lactated) Confirm Administered Dose 1,000 mls @ as directed .ROUTE .STK-MED ONE Stop: 03/14/17 12:41 Iopamidol (Isovue-300 (61%)) Confirm Administered Dose 50 ml .ROUTE .STK-MED ONE Stop: 03/14/17 11:01 Last Admin: 03/14/17 12:35 Dose: 50 ml Lidocaine/Epinephrine (Xylocaine 1% With Epinephrine 1:100,000) Confirm Administered Dose 20 ml .ROUTE .STK-MED ONE Stop: 03/14/17 11:01 Last Admin: 03/14/17 12:34 Dose: 20 ml Magnesium Hydroxide (Milk Of Magnesia) 30 ml PO Q6H PRN PRN Reason: Constipation Last Admin: 03/14/17 20:04 Dose: 30 ml Midazolam HCl (Versed 1 Mg/Ml) Confirm Administered Dose 2 mg .ROUTE .STK-MED ONE Stop: 03/14/17 11:17 Neostigmine Methylsulfate (Neostigmine) Confirm Administered Dose 5 mg .ROUTE .STK-MED ONE Stop: 03/14/17 13:10 Ondansetron HCl (Zofran) 4 mg IVPUSH Q6H PRN PRN Reason: Nausea Ondansetron HCl (Zofran) Confirm Administered Dose 4 mg .ROUTE .STK-MED ONE Stop: 03/14/17 11:16 Oxycodone/Acetaminophen (Percocet 325-5 Mg) 2 tab PO Q4H PRN PRN Reason: Pain (moderate 4-6) Last Admin: 03/14/17 22:01 Dose: 1 tab Pantoprazole Sodium (Protonix) 40 mg PO DAILY@0600 [facility] Last Admin: 03/15/17 06:49 Dose: 40 mg Propofol (Diprivan 20 Ml) Confirm Administered Dose 200 mg .ROUTE .STK-MED ONE Stop: 03/14/17 11:16 Sodium Chloride (Normal Saline) Confirm Administered Dose 100 ml .ROUTE .[employer]- MED ONE Stop: 03/14/17 11:01 Last Admin: 03/14/17 12:38 Dose: 20 ml Sodium Chloride (Saline Flush) 10 ml FLUSH ASDIRECTED PRN PRN Reason: Keep Vein Open Vecuronium [place] (Vecuronium) Confirm Administered Dose 10 mg .ROUTE .[employer] ONE Stop: 03/14/17 11:17 - Exam Quality Assessment: Denies: supplemental oxygen General: Reports: alert, oriented, cooperative, no acute distress HEENT: Denies: Scleral icterus Lungs: Reports: Clear to auscultation, Normal respiratory effort Cardiovascular: Reports: Regular Rate, Regular Rhythm Abdomen: Reports: soft, no distension, tenderness (minimal ), other (Incisions c /d/i with dermabond ) Rectal (Female) Exam: Deferred Extremities: Reports: no edema Skin: Reports: warm, dry, intact Wound/Incisions: Reports: healing well, dressing dry and intact, no drainage Neurological: Reports: no new focal deficit Psy/Mental Status: Reports: alert, normal affect, normal mood *Q Meaningful Use (DIS) - VTE *Q VTE Criteria *Q: - Stroke *Q Stroke Criteria *Q: - AMI *Q AMI Criteria *Q:
== END 2017-03-15 17:00 | disposition home or self-care (01) | DRG 263 ==
LOC: JD.ED 21:01 → JD.MS 03-14 00:04
PROVIDERS: ADMIT Surgery; ATTEND Surgery
PROC: 0FT44ZZ Resection of Gallbladder, Percutaneous Endoscopic Approach (ICD-10-PCS; principal; 2017-03-14)
PROC: 0DBA8ZX Excision of Jejunum, Via Natural or Artificial Opening Endoscopic, Diagnostic (ICD-10-PCS; 2017-03-14)
PROC: 0DB58ZX Excision of Esophagus, Via Natural or Artificial Opening Endoscopic, Diagnostic (ICD-10-PCS; 2017-03-14)
PROC: 0DB68ZX Excision of Stomach, Via Natural or Artificial Opening Endoscopic, Diagnostic (ICD-10-PCS; 2017-03-14)
PROC: 0DB98ZX Excision of Duodenum, Via Natural or Artificial Opening Endoscopic, Diagnostic (ICD-10-PCS; 2017-03-14)
DX: K80.12 Calculus of gallbladder with acute and chronic cholecystitis without obstruction (principal); Z88.2 Allergy status to sulfonamides; Z79.899 Other long term (current) drug therapy; E66.9 Obesity, unspecified; Z68.30 Body mass index [BMI] 30.0-30.9, adult; Z87.19 Personal history of other diseases of the digestive system; Z79.1 Long term (current) use of non-steroidal anti-inflammatories (NSAID); R42 Dizziness and giddiness; R74.8 Abnormal levels of other serum enzymes; K29.70 Gastritis, unspecified, without bleeding; K44.9 Diaphragmatic hernia without obstruction or gangrene; G89.29 Other chronic pain; M54.9 Dorsalgia, unspecified
CPT/HCPCS: 00790; 36415; 74300; 74300-26; 76700; 76700-26; 80048; 80053; 80076; 81001; 83690; 85025; 85027; 93005; 99284; 99285-25; A9270-GY; J0690; J1100; J1170; J1200; J2250; J2405; J2704; J2710; J3010; J3490; J7120; Q9967

== ENCOUNTER 2021-02-09 09:56 | Emergency (ER) | payer BC ==
[2021-02-09] MEDS ORDERED: HYDROmorphone 1 MG/ML Syringe IVPUSH STA (11:19)
[2021-02-09] MEDS ORDERED: Ondansetron 4 MG/2 ML SDV IVPUSH ONE (11:19)
[2021-02-09] MEDS ORDERED: Sodium Chloride 0.9% 1,000 ML IV SCH (11:30)
[2021-02-09] MEDS: Sodium Chloride 0.9% 10 ML Syringe FLUSH PRN ×2 (11:35→12:50)
--- NOTE | 2021-02-09 11:36 | EDM.PDOC ---
ED HPI GENERAL MEDICAL PROBLEM - General Chief Complaint: Gastrointestinal Problem Stated Complaint: PAIN AND CRAMPING IN STOMACH SENT FROM [place] Time Seen by Provider: 02/09/21 11:05 Source of Information: Reports: Patient, RN Notes Reviewed History Limitations: Reports: No Limitations - History of Present Illness INITIAL COMMENTS - FREE TEXT/NARRATIVE: Patient is a 60-year-old female who presents to the ER for evaluation of her abdomen and rectum discomfort. Patient notes that she has a history of C. difficile colitis and/or diverticulitis. She notes that she has been having issues with diarrhea for some time, she notes very multiple watery stools, that vary in color sometimes are green, sometimes they are brown, sometimes are oily. She has not had a normal bowel movement for quite some time, she states she can he remember when she had a regular bowel movement. She has been having abdomen pain, since roughly September, when she had back surgery from a surgeon in [place], and was given a dose of IV antibiotics. Patient is complaining of an knocking pain or pressure in her rectum and pelvis area. She states that she has had multiple bouts of uncontrollable diarrhea, so much that it makes her incontinent at times. She feels bloated, and has quite a bit of gas, notes that when she belches, they are pretty foul-smelling. She has had no nausea or vomiting, no fevers or chills, no cough or shortness of breath. Patient did have some leftover metronidazole, 250 mg tablets that she has been taking for the last few days, to see if this would help clear things up however nothing seems to be working. Last colonoscopy was roughly 3 years ago, and she was not told that there was any worrisome findings. She does take a probiotic and Metamucil on a daily basis, along with multivitamins when she can remember. - Related Data Allergies Allergy/AdvReac Type Severity Reaction Status Date / Time Sulfa (Sulfonamide Allergy Rash Verified 04/17/18 04:48 Antibiotics) Home Meds: Home Meds Multivitamin with Minerals [Multiple Vitamin] 1 tab PO DAILY 06/03/15 [History] SUMAtriptan succinate [Imitrex] 1 tab PO ASDIRECTED PRN 06/03/15 [History] estradioL [Vivelle-Dot] 1 each TD ASDIRECTED 06/03/15 [History] Meloxicam 7.5 mg PO QAM PRN #30 tablet 03/15/17 [Rx] Pantoprazole [ProTONIX] 40 mg PO DAILY #90 tab.cr 03/15/17 [Rx] Acetaminophen/HYDROcodone [[place] 325-5 MG] 1 - 2 tab PO Q6H PRN #10 tablet 04/17/18 [Rx] Ondansetron [Zofran ODT] 1 tab PO Q8H PRN #10 tab.dis 04/17/18 [Rx] Amoxicillin/Clavulanate K [Augmentin 875-125 MG] 1 tab PO BID #14 tablet 02/09/21 [Rx] Past Medical History HEENT History: Reports: Impaired Vision Other HEENT History: Wears glasses Cardiovascular History: Reports: [place], Other (See Below) Other Cardiovascular History: Abnormality noted on EKG - ? old inferior infarct, reports normal stress test in [place] 1.5 years ago Respiratory History: Reports: Other (See Below) Other Respiratory History: spot on left lung Gastrointestinal History: Reports: Cholelithiasis, Chronic Diarrhea, Colon Polyp, Diverticulosis, Fecal Incontinence, Irritable Bowel Syndrome Genitourinary History: Reports: UTI, Recurrent Other Genitourinary History: history of uti's. none at present. cystocele/rectocele repair w/ Dr. Oh Musculoskeletal History: Reports: Back Pain, Chronic, Other (See Below) Other Musculoskeletal History: Sciatica Neurological History: Reports: Migraines Endocrine/Metabolic History: Reports: Obesity/BMI 30+ - Infectious Disease History Infectious Disease History: Reports: C-Difficile - Past Surgical History HEENT Surgical History: Reports: Tonsillectomy, Other (See Below) GI Surgical History: Reports: Appendectomy, Cholecystectomy, Colonoscopy Female Surgical History: Reports: D&C, Hysterectomy, Other (See Below) Other Female Surgeries/Procedures: Cystocele/ Rectocele repair Social & Family History - Family History Family Medical History: No Pertinent Family History - Caffeine Use Caffeine Use: Reports: None Other Caffeine Use: 1 caffinated drink a day - Living Situation & Occupation Living situation: Reports: Occupation: Employed ED ROS GENERAL - Review of Systems Review Of Systems: Comprehensive ROS is negative, except as noted in HPI. ED EXAM, GI/ABD - Physical Exam Exam: See Below Exam Limited By: No Limitations General Appearance: Alert, WD/WN, No Apparent Distress Respiratory/Chest: No Respiratory Distress, Lungs Clear, Normal Breath Sounds, No Accessory Muscle Use, Chest Non-Tender Cardiovascular: Normal Peripheral Pulses, Regular Rate, Rhythm, No Edema GI/Abdominal Exam: Soft, No Distention, No Mass, Tender (generalized, but seems worse in lower abdomen), Abnormal Bowel Sounds (hypoactive tones x 4 quadrants) Extremities: Normal Inspection, Normal Capillary Refill Neurological: Alert, Oriented, Normal Cognition, No Motor/Sensory Deficits Psychiatric: Normal Affect, Normal Mood Skin Exam: Warm, Dry, Intact, Normal Color, No Rash Course - Vital Signs Last Recorded V/S: Last Vital Signs Temp 99 F 02/09/21 11:04 Pulse 88 02/09/21 11:04 Resp 18 02/09/21 11:04 BP 168/99 H 02/09/21 11:04 Pulse Ox 99 02/09/21 11:04 - Orders/Labs/Meds Orders: Active Orders 24 hr Category Date Time Status Peripheral IV Care [RC] . DIRECTED Care 02/09/21 11:30 Active C DIFFICILE PCR W/REFLEX [MOLEC] Stat Lab 02/09/21 11:20 Ordered UA W/MICROSCOPIC [URIN] Stat Lab 02/09/21 13:00 Results Sodium Chloride 0.9% [Normal Saline] 1,000 ml Med 02/09/21 11:30 Active IV ASDIRECTED Sodium Chloride 0.9% [Saline Flush] Med 02/09/21 11:30 Active 10 ml FLUSH ASDIRECTED PRN Peripheral IV Insertion Adult [OM.PC] Routine Oth 02/09/21 11:30 Ordered Medication Orders Sodium Chloride (Normal Saline) 1,000 mls @ 999 mls/hr IV ASDIRECTED ALEKSANDR Last Admin: 02/09/21 11:34 Dose: 999 mls/hr Documented by: ALPHONSE Sodium Chloride (Sodium Chloride 0.9% 10 Ml Syringe) 10 ml FLUSH ASDIRECTED PRN PRN Reason: Keep Vein Open Last Admin: 02/09/21 12:50 Dose: 10 ml Documented by: Admin: 02/09/21 11:35 Dose: 10 ml Documented by: ALPHONSE Labs: Laboratory Tests 02/09/21 02/09/21 02/09/21 Range/Units 11:36 11:36 13:00 WBC 12.48 H (3.98-10.04) K/mm3 RBC 5.25 H (3.98-5.22) M/mm3 Hgb 15.1 (11.2-15.7) gm/dl Hct 44.9 (34.1-44.9) % MCV 85.5 (79.4-94.8) fl MCH 28.8 (25.6-32.2) pg MCHC 33.6 (32.2-35.5) g/dl RDW Std Deviation 39.5 (36.4-46.3) fL Plt Count 344 (182-369) K/mm3 MPV 8.8 L (9.4-12.3) fl Neutrophils % (Manual) 66 H (40-60) % Band Neutrophils % 0 (0-10) % Lymphocytes % (Manual) 21 (20-40) % Atypical Lymphs % 8 % Monocytes % (Manual) 4 (2-10) % Eosinophils % (Manual) 1 (0.7-5.8) % Basophils % (Manual) 0 L (0.1-1.2) Platelet Estimate Adequate Plt Morphology Comment Normal RBC Morph Comment Normal Sodium 140 (136-145) mEq/L Potassium 3.7 (3.5-5.1) mEq/L Chloride 104 (98-107) mEq/L Carbon Dioxide 25 (21-32) mEq/L Anion Gap 14.7 (5-15) BUN 11 (7-18) mg/dL Creatinine 0.7 (0.55-1.02) mg/dL Est Cr Clr Drug Dosing 70.70 mL/min Estimated GFR (MDRD) > 60 (>60) mL/min BUN/Creatinine Ratio 15.7 (14-18) Glucose 89 (70-99) mg/dL Calcium 8.5 (8.5-10.1) mg/dL Total Bilirubin 0.8 (0.2-1.0) mg/dL AST 19 (15-37) U/L ALT 33 (14-59) U/L Alkaline Phosphatase 94 (46-116) U/L C-Reactive Protein 1.7 H* (<1.0) mg/dL Total Protein 7.4 (6.4-8.2) g/dl Albumin 3.6 (3.4-5.0) g/dl Globulin 3.8 gm/dL Albumin/Globulin Ratio 1.0 (1-2) Lipase 102 (73-393) U/L Urine Color Yellow (Yellow) Urine Appearance Clear (Clear) Urine pH 6.5 (5.0-8.0) Ur Specific [place] 1.015 (1.005-1.030) Urine Protein Negative (Negative) Urine Glucose (UA) Negative (Negative) Urine Ketones Negative (Negative) Urine Occult Blood Trace-lysed H (Negative) Urine Nitrite Negative (Negative) Urine Bilirubin Negative (Negative) Urine Urobilinogen 0.2 (0.2-1.0) Ur Leukocyte Esterase Negative (Negative) Meds: Medications Generic Name Dose Route Start Last Admin Trade Name Freq PRN Reason Stop Dose Admin Sodium Chloride 1,000 mls @ 999 mls/hr 02/09/21 11:30 02/09/21 11:34 Normal Saline IV 999 mls/hr ASDIRECTED ALEKSANDR Administration Sodium Chloride 10 ml 02/09/21 11:30 02/09/21 12:50 Sodium Chloride 0.9% 10 Ml Syringe FLUSH 10 ml ASDIRECTED PRN Administration Keep Vein Open Discontinued Medications Generic Name Dose Route Start Last Admin Trade Name Freq PRN Reason Stop Dose Admin Diatrizoate Meglum/Diatrizoate Sod 60 ml 02/09/21 12:16 Diatrizoate Meglumine/Diatrizoate Sodium 37% 120 Ml Bottle PO 02/09/21 12:17 ONETIME ONE Hydromorphone HCl 1 mg 02/09/21 11:19 02/09/21 11:34 Hydromorphone 1 Mg/Ml Syringe IVPUSH 02/09/21 11:20 1 mg ONETIME STA Administration Iopamidol 100 ml 02/09/21 12:16 02/09/21 12:48 Iopamidol 612 Mg/Ml 100 Ml Bottle IVPUSH 02/09/21 12:17 100 ml ONETIME ONE Administration Iopamidol 25 ml 02/09/21 12:16 02/09/21 12:48 Iopamidol 612 Mg/Ml 50 Ml Sdv IVPUSH 02/09/21 12:17 25 ml ONETIME ONE Administration Ondansetron HCl 4 mg 02/09/21 11:19 02/09/21 11:33 Ondansetron 4 Mg/2 Ml Sdv IVPUSH 02/09/21 11:20 4 mg ONETIME ONE Administration - Re-Assessments/Exams Free Text/Narrative Re-Assessment/Exam: 02/09/21 11:36 Patient presents to the ER for her generalized abdomen pain, has a positive history of C. difficile, we will try to collect a stool sample for testing if possible she did bring 1 in, but I do not believe it is within parameters for us to be able to collect that particular sample however get IV started, get some basic labs, get her some IV fluids, pain and nausea meds, and a CT for further evaluation. 02/09/21 13:23 The patient's labs have resulted, her white cell count is elevated at 12.48 with 66% neutrophils. Metabolic panel essentially unremarkable, CRP is elevated 1.7, urinalysis is negative for any sort of infection at today's visit. CT does demonstrate findings compatible with mild diverticulitis within the sigmoid colon. We will go ahead and treat her with a course of antibiotics, we will try Augmentin course and have her follow-up with her regular care provider to make sure that symptoms are getting better sometime this week. Departure - Departure Time of Disposition: 13:36 Disposition: Home, Self-Care 01 Condition: Good Clinical Impression: Sigmoid diverticulitis - Discharge Information *PRESCRIPTION DRUG MONITORING PROGRAM REVIEWED*: No *COPY OF PRESCRIPTION DRUG MONITORING REPORT IN PATIENT KYLE: No Prescriptions: Amoxicillin/Clavulanate K [Augmentin 875-125 MG] 1 tab PO BID #14 tablet Instructions: Diverticulitis, [id number] Referrals: Sujatha Stacy [employer] [Primary Care Provider] - Forms: ED Department Discharge Additional Instructions: You were seen in this ER for your ongoing abdomen pain. Laboratory evaluation, and CT were consistent with acute diverticulitis of the sigmoid colon. You have been placed on Augmentin, antibiotic to help clear up the infection. Please take 1 tablet 2 times a day until gone. This medication was electronically sent to the [facility] located near [facility]. You indicated that you had some leftover Bentyl or dicyclomine from times past when you had diverticulitis, you may take this as directed for further abdomen cramping. Otherwise you may use Tylenol or ibuprofen every 6 hours as needed for further pain. Recommend you continue to use Metamucil in your diet, to help bulk up your stools, as Augmentin can cause more diarrhea. As you indicated that you have just recently moved back, I recommend you call the clinic tomorrow at [phone], and obtain an appoint with your primary care provider of choice. There are multiple providers that should be able to provide you with the services. Recommend Evie Pearson or Chela Trevizo if possible. As always antibiotics can take up to 48 hours to start providing symptomatic control. Outpatient orders have also been placed for you, for stool studies, please collect these as indicated by nursing staff, and bring back to our hospital for testing if possible. Please return to the ER at any time if symptoms change or worsen. Sepsis Event Note (ED) - Evaluation Sepsis Screening Result: No Definite Risk - Focused Exam Vital Signs: Vital Signs Temp Pulse Resp BP Pulse Ox 02/09/21 11:04 99 F 88 18 168/99 H 99 - My Orders Last 24 Hours: My Active Orders 02/09/21 11:20 C DIFFICILE PCR W/REFLEX [MOLEC] Stat 02/09/21 11:30 Peripheral IV Care [RC] . DIRECTED Sodium Chloride 0.9% [Normal Saline] 1,000 ml IV ASDIRECTED Sodium Chloride 0.9% [Saline Flush] 10 ml FLUSH ASDIRECTED PRN Peripheral IV Insertion Adult [OM.PC] Routine 02/09/21 13:00 UA W/MICROSCOPIC [URIN] Stat - Assessment/Plan Last 24 Hours: My Active Orders 02/09/21 11:20 C DIFFICILE PCR W/REFLEX [MOLEC] Stat 02/09/21 11:30 Peripheral IV Care [RC] . DIRECTED Sodium Chloride 0.9% [Normal Saline] 1,000 ml IV ASDIRECTED Sodium Chloride 0.9% [Saline Flush] 10 ml FLUSH ASDIRECTED PRN Peripheral IV Insertion Adult [OM.PC] Routine 02/09/21 13:00 UA W/MICROSCOPIC [URIN] Stat
[2021-02-09] MEDS ORDERED: Diatrizoate Meglumine/Diatrizoate Sodium 37% 120 ML Bottle PO ONE (12:16)
[2021-02-09] MEDS ORDERED: Iopamidol 612 MG/ML 50 ML SDV IVPUSH ONE (12:16)
[2021-02-09] MEDS ORDERED: Iopamidol 612 MG/ML 100 ML Bottle IVPUSH ONE (12:16)
--- NOTE | 2021-02-09 13:20 | CT ---
CT abdomen and pelvis Technique: Multiple axial sections were obtained from above the dome of the diaphragm inferiorly through the pubic symphysis. Intravenous and oral contrast was utilized. Delayed axial images were obtained to the bladder. Reconstructed coronal and sagittal images were also obtained. Comparison: Previous CT abdomen and pelvis CT of 04/17/18 Findings: Diverticuli are seen within the sigmoid and descending colon. There is mild inflammatory change seen around the sigmoid colon compatible with mild diverticulitis. Slight atelectasis is noted within both lung bases. Liver shows mild fatty infiltration. Surgical clips are seen from prior cholecystectomy. Spleen is normal in size. Adrenal glands show no nodule. No abnormality is appreciated within the pancreas. Kidneys show symmetric contrast enhancement with no hydronephrosis or mass. Abdominal aorta shows no aneurysm. No retroperitoneal adenopathy or mesenteric abnormalities are seen. No pelvic mass or adenopathy is seen. Delayed images show contrast within the distal ureters and within the bladder. Bone window settings were reviewed. Mild scattered degenerative change is noted within the spine. No acute osseous abnormality is appreciated. Impression: 1. Diverticulosis within the descending and sigmoid regions. 2. Findings compatible with mild diverticulitis within the sigmoid colon. 3. Other findings as noted above. Diagnostic code #3
[2021-02-09] MEDS ORDERED: HYDROmorphone 0.5 MG/0.5 ML Syringe IVPUSH ONE (14:07)
[2021-02-09 14:32] VITALS: BP 138/82; PULSE 82
== END 2021-02-09 14:20 | disposition home or self-care (01) ==
LOC: JD.ED 09:56
DX: K57.32 Diverticulitis of large intestine without perforation or abscess without bleeding (principal); I25.2 Old myocardial infarction; E66.9 Obesity, unspecified; Z68.36 Body mass index [BMI] 36.0-36.9, adult; Z88.2 Allergy status to sulfonamides; Z79.899 Other long term (current) drug therapy
CPT/HCPCS: 36415; 74177; 80053; 81001; 83690; 85007; 85027; 86140; 96374; 96375; 96376; 99284; J1170; J2405; J7030; Q9963; Q9967

== ENCOUNTER → 2022-02-05 | Day surgery (SDC) | payer BC ==
[2022-02-05] MEDS: Brimonidine 0.2% Ophth Soln 5 ML Bottle EYEBOTH SCH ×2 (16:08→17:10)
[2022-02-05] MEDS: Phenylephrine 2.5% Ophth Soln 2 ML Bot EYEBOTH SCH ×2 (16:16→16:25)
[2022-02-05] MEDS: Tropicamide 1% Ophth Soln 15 ML Bottle EYEBOTH SCH ×2 (16:20→16:40)
== END ==
LOC: JD.SDS 07:35
PROVIDERS: ATTEND Ophthalmology
DX: H26.493 Other secondary cataract, bilateral (principal); H16.223 Keratoconjunctivitis sicca, not specified as Sjogren's, bilateral; H02.834 Dermatochalasis of left upper eyelid; H02.831 Dermatochalasis of right upper eyelid; H16.103 Unspecified superficial keratitis, bilateral; Z96.1 Presence of intraocular lens; Z98.890 Other specified postprocedural states

== ENCOUNTER 2022-04-08 06:39 | Day surgery (SDC) | payer BC ==
[~2022-04-08 06:39] MED LIST: Acetaminophen 325 MG Tab PO SCH; Lactated Ringers 1,000 ML IV SCH; Lidocaine 1%/Sod Bicarbonate in NS 8.4% 1 ML Syringe IDERM PRN; Sodium Chloride 0.9% 10 ML Syringe FLUSH PRN; Sodium Chloride 0.9% 10 ML Syringe FLUSH SCH; Vancomycin 1 GM SDV ONE; oxyCODONE ER 10 MG TAB.ER PO SCH
[2022-04-08] MEDS ORDERED: fentaNYL 100 MCG/2 ML SDV ONE (07:17)
[2022-04-08] MEDS ORDERED: Lidocaine 1% 6 ML ONE (07:19)
[2022-04-08] MEDS ORDERED: Propofol 200 MG/20 ML SDV ONE (07:19)
[2022-04-08] MEDS ORDERED: Ondansetron 4 MG/2 ML SDV ONE (07:20)
[2022-04-08] MEDS ORDERED: Dexamethasone 4 MG/ML 5 ML MDV ONE (07:20)
[2022-04-08] MEDS ORDERED: Succinylcholine 200 MG/10 ML MDV ONE (07:20)
[2022-04-08] MEDS ORDERED: Rocuronium 50 MG/5 ML Vial ONE (07:20)
[2022-04-08] MEDS ORDERED: ceFAZolin 2 GM Vial ONE (07:55)
[2022-04-08] MEDS ORDERED: HYDROmorphone 0.5 MG/0.5 ML Syringe ONE ×4 (08:11→08:59)
[2022-04-08] MEDS ORDERED: Metoclopramide 10 MG/2 ML SDV IVPUSH ONE (08:30)
[2022-04-08] MEDS ORDERED: Scopolamine 1.5 MG Transdermal Patch TOP ONE (08:30)
[2022-04-08] MEDS: Morphine 8 MG, EPINEPHrine 0.3 MG, Cefuroxime 750 MG, Ketorolac 30 MG, Sodium Chloride ... PRN ×10 (08:44→09:18)
[2022-04-08] MEDS ORDERED: fentaNYL 100 MCG/2 ML SDV IVPUSH ONE (10:30)
[2022-04-08] MEDS ORDERED: oxyCODONE 5 MG Tab PO PRN (11:32)
[2022-04-08 12:18] VITALS: BP 116/72; PULSE 73
== END 2022-04-08 13:15 | disposition home or self-care (01) ==
LOC: JD.SDS 06:39
PROVIDERS: ATTEND Orthopaedic Surgery
DX: M16.11 Unilateral primary osteoarthritis, right hip (principal); E66.9 Obesity, unspecified; Z98.890 Other specified postprocedural states; Z90.49 Acquired absence of other specified parts of digestive tract; Z79.899 Other long term (current) drug therapy; Z88.2 Allergy status to sulfonamides; Z88.1 Allergy status to other antibiotic agents; Z88.8 Allergy status to other drugs, medicaments and biological substances; Z68.37 Body mass index [BMI] 37.0-37.9, adult
CPT/HCPCS: 0055T; 27130; 73501; 97110; 97116; 97161; A9270; C1713; C1776; J0171; J0330; J0690; J0697; J1100; J1170; J1885; J2270; J2405; J2704; J2765; J3010; J3370; J7120; 01214

== ENCOUNTER 2022-04-15 16:03 | Emergency (ER) | payer BC ==
[2022-04-15 16:16] VITALS: BP 143/77; PULSE 87
== END 2022-04-15 18:41 | disposition home or self-care (01) ==
LOC: JD.ED 16:03
DX: M25.551 Pain in right hip (principal); E66.9 Obesity, unspecified; Z68.37 Body mass index [BMI] 37.0-37.9, adult; Z88.5 Allergy status to narcotic agent; Z88.2 Allergy status to sulfonamides; Z88.8 Allergy status to other drugs, medicaments and biological substances; Z88.1 Allergy status to other antibiotic agents; Z79.01 Long term (current) use of anticoagulants
CPT/HCPCS: 36415; 73502-26-RT; 73502-RT; 80053; 85025; 85610; 85652; 86140; 99283